=== PATIENT | male | born 1950 | race Caucasian/White ===

== ENCOUNTER 2017-08-03 04:29 | Day surgery (SDC) | payer OTHER ==
[2017-08-03 04:41] VITALS: BMI 25.3
--- NOTE | 2017-08-03 04:47 | PDOC ---
History of Present Illness - General Chief Complaint: Dysphagia Stated Complaint: DIFFICULTY SWALLOWING Time Seen by Provider: 08/03/17 04:33 - History of Present Illness Initial Comments: 08/03/17 04:49 This 66-year-old man with a history of Schatzki ring, hiatal hernia, GERD, BPH and remote history of squamous cell carcinoma of the tongue, presents with lower anterior chest pain secondary to food impaction. Schatzki ring was diagnosed approximately 3 years ago after Barium swallow/endoscopy . Patient has food impaction several times a year but all previous episodes have resolved spontaneously. recently, it has taken longer for boluses to pass thru esophagus completely. He has never needed endoscopic retrieval of food bolus. Last night, at approximately 8 PM patient ate brown rice/egg jennie young(patient does not eat meat). He knew immediately when one portion of food was not passing through the esophagus. For the first few hours, he was unable to swallow his saliva. Eventually, he was able to swallow his secretions. Through the night,patient slept in a chair and discomfort traveled lower but continued, now being in the lower sternal region. He also has had, as usual, frequent painful burping. He is still able to swallow his saliva but states he came in because the pain is so severe and prolonged Patient denies smoking/ethanol/other recreational drugs Medications as noted below Past History - Past Medical History Allergies/Adverse Reactions: Allergies Allergy/AdvReac Type Severity Reaction Status Date / Time nadira Allergy Mild Rash Unverified 01/31/15 21:39 Home Medications: Ambulatory Orders Levothyroxine [Synthroid -] 50 mcg PO DAILY 08/03/17 Cancer: Yes (SQUAMO. CELL CA TONGUE) - Suicide/Smoking/Psychosocial Hx Smoking Status: No Smoking History: Unknown if ever smoked Number of Cigarettes Smoked Daily: 0 Review of Systems - Review of Systems Able to Perform ROS?: Yes Comments:: 12 point review of systems is negative except for what is noted in the history of present illness *Physical Exam - Physical Exam Comments: GENERAL: Adult male, alert and oriented 3, in moderate distress secondary to lower chest pain/painful burping HEAD: Normal with no signs of trauma. EYES: PERRLA, EOMI, sclera anicteric, conjunctiva clear. ENT: Ears normal, nares patent, oropharynx clear without exudates. Dry mucous membranes. NECK: Normal range of motion, supple without lymphadenopathy, JVD, or masses. LUNGS: Breath sounds equal, clear to auscultation bilaterally. No wheezes, and no crackles. HEART:Regular rate and rhythm, normal S1 and S2 without murmur, rub or gallop. ABDOMEN:.normal bowel sounds No guarding,tenderness or rebound.No masses No distention. EXTREMITIES: Normal range of motion, no edema. No clubbing or cyanosis. No erythema, or tenderness. NEUROLOGICAL: Cranial nerves II through XII grossly intact. Normal speech. No focal neurological deficits. MUSCULOSKELETAL: Back non-tender to palpation, no CVA tenderness SKIN: Warm, Dry, normal turgor, no rashes or lesions noted. ED Treatment Course - LABORATORY CBC & Chemistry Diagram: 08/03/17 05:01 08/03/17 05:01 Medical Decision Making - Medical Decision Making 66-year-old man with known Schatzki ring and occasional food impaction presents with 8 hour history of anterior chest pain secondary to food bolus which appears to be progressing but not yet in stomach. Exam reveals normal chest and abdominal exam. CBC/chemistry profile/INR drawn for preop evaluation Glucagon 1 mg IV administered to attempt smooth muscle relaxation for passage of bolus. 08/03/17 06:21 Laboratory evaluation essentially normal except for mild prerenal azotemia (BUN 22/creatinine 0.9). Portable chest x-ray reveals no active disease; hiatal hernia seen. Patient had no relief after glucagon [address] Madsen notified: He will speak to OR and arrange for endoscopy. Pt given 500ml NS bolus 08/03/17 07:07 Case signed out to Dr King at end of shift. 08/03/17 07:08 *DC/Admit/Observation/Transfer Diagnosis at time of Disposition: Esophageal obstruction due to food impaction - Discharge Dispostion Disposition: HOME Condition at time of disposition: Good - Referrals - Patient Instructions - Post Discharge Activity
[2017-08-03] MEDS ORDERED: GLUCAGON 1 MG KIT IVPUSH ONE (04:48)
[2017-08-03] MEDS ORDERED: GLUCAGON 1 MG KIT ONE (04:51)
[2017-08-03 06:04] LABS: INR 0.99 (0.82-1.09); PROTHROMBIN TIME (PATIENT) 11.1 SEC (9.7-13.0)
[2017-08-03 06:08] LABS: RBC 4.96 M/mm3 (4.00-5.60); WHITE BLOOD COUNT 4.8 K/mm3 (4.0-10.0)
[2017-08-03 06:09] LABS: HEMATOCRIT 44.4 % (35.4-49); MCH 30.2 pg (25.7-33.7); MEAN CELL VOLUME 89.5 fl (80-96)
[2017-08-03 06:10] LABS: BASO % 0.7 % (0-2.0); EOS % 5.3 % (0-4.5); LYMPH % 33.5 % (8-40); MCHC 33.8 g/dl (32.0-35.9); MONO % 9.5 % (3.8-10.2); PLATELET COUNT 171 K/MM3 (134-434); RDW 14.2 % (11.9-15.9)
[2017-08-03 06:14] LABS: ALBUMIN 4.1 g/dl (3.4-5.0); ALK PHOS 85 U/L (45-117); ANION GAP 7 (8-16); BILIRUBIN,TOTAL 0.5 mg/dL (0.2-1.0); BLOOD UREA NITROGEN 22 mg/dL (7-18); CALCIUM 9.2 mg/dL (8.5-10.1); CHLORIDE 102 mmol/L (98-107); CO2 31 mmol/L (21-32); CREATININE 0.9 mg/dL (0.7-1.3); GLUCOSE,RANDOM 92 mg/dL (74-106); POTASSIUM 4.3 mmol/L (3.5-5.1); SGOT/AST 18 U/L (15-37); SGPT/ALT 24 U/L (12-78); SODIUM 140 mmol/L (136-145); TOT PROT 6.9 g/dl (6.4-8.2)
[2017-08-03] MEDS ORDERED: SODIUM CHLORIDE 500 ML IV STA (07:00)
--- NOTE | 2017-08-03 10:29 | PDOC ---
*Physical Exam - Vital Signs Last Vital Signs Temp Pulse Resp BP Pulse Ox 98 F 51 L 20 134/81 99 08/03/17 08:35 08/03/17 08:35 08/03/17 08:35 08/03/17 08:35 08/03/17 08:35 ED Treatment Course - LABORATORY CBC & Chemistry Diagram: 08/03/17 05:01 08/03/17 05:01 - ADDITIONAL ORDERS Additional order review: Laboratory Results 08/03/17 08/03/17 05:01 05:00 PT with INR 11.10 INR 0.99 Sodium 140 Potassium 4.3 Chloride 102 Carbon Dioxide 31 Anion Gap 7 L BUN 22 H Creatinine 0.9 Creat Clearance w eGFR > 60 Random Glucose 92 Calcium 9.2 Total Bilirubin 0.5 AST 18 ALT 24 Alkaline Phosphatase 85 Total Protein 6.9 Albumin 4.1 08/03/17 05:01 RBC 4.96 MCV 89.5 MCHC 33.8 RDW 14.2 Neutrophils % 51.0 Lymphocytes % 33.5 Monocytes % 9.5 Eosinophils % 5.3 H Basophils % 0.7 - Medications Given in the ED: ED Medications Discontinued Medications Generic Name Dose Route Start Last Admin Trade Name Freq PRN Reason Stop Dose Admin Glucagon 1 mg 08/03/17 04:48 08/03/17 05:01 Glucagon - IVPUSH 08/03/17 04:49 1 mg ONCE ONE Administration Sodium Chloride 500 mls @ 500 mls/hr 08/03/17 07:00 08/03/17 07:06 Normal Saline - IV 08/03/17 07:59 500 mls/hr ASDIR STA Administration Medical Decision Making - Medical Decision Making 08/03/17 10:30 Pt to be taken to the OR for further management *DC/Admit/Observation/Transfer Diagnosis at time of Disposition: Esophageal obstruction due to food impaction - Discharge Dispostion Condition at time of disposition: Stable Decision to Admit order: No - Referrals Referrals: Cody Gary MD [Primary Care Provider] - - Patient Instructions - Post Discharge Activity
[2017-08-03] MEDS ORDERED: SUCCINYLCHOLINE CHLORIDE 200 MG/10 ML VIAL ONE (10:40)
[2017-08-03] MEDS ORDERED: PROPOFOL 20 ML ONE ×2 (10:40→12:34)
[2017-08-03] MEDS ORDERED: MIDAZOLAM HCL 2 MG/2 ML SINGLE DOSE VIAL ONE ×3 (10:40→11:08)
[2017-08-03] MEDS ORDERED: LIDOCAINE HCL/PF 2% SDV 5ML VIAL ONE (10:42)
[2017-08-03] MEDS ORDERED: ONDANSETRON 4 MG/2 ML VIAL IVPUSH PRN (12:57)
[2017-08-03] MEDS ORDERED: LACTATED RINGERS SOLUTION 1,000 ML IV SCH (13:00)
--- NOTE | 2017-08-03 14:16 | OP ---
DATE OF OPERATION: 08/03/2017 SURGEON: Yan Madsen MD PROCEDURE: Upper endoscopy with foreign body removal from esophagus. DESCRIPTION OF PROCEDURE: Procedure sedated in the operating room by Dr. Quincy Metzger. The Olympus upper endoscope was passed under direct visualization down the esophagus. In the mid and distal esophagus, there appeared to be food impaction made up primarily of rice and some vegetable material. The scope was able to be pushed through this area to the distal esophagus and easily advanced through the GE junction into the stomach. The scope was then advanced into the small bowel. The 2nd portion of the duodenum appeared normal as did the duodenal bulb. The stomach was insufflated with air and appeared normal throughout. The fundus had some residual food that had been pushed down when the scope was advanced. The scope was then withdrawn back into the esophagus. There was some residual food in the distal esophagus primarily made up of soft, sticky material such as rice and possibly egg (patient had previously eaten Telugu food). There were no solid pieces noted, and the scope was able to be passed several times advancing some of the food material into the gastric fundus. There was an open lumen in the esophagus, so, when the procedure was completed, without obstruction. The scope was withdrawn from the patient. IMPRESSION: Mid to distal esophageal food impaction/obstruction due to a combination of rice and egg (Telugu food). There was possible narrowing and slight inflammation at the gastroesophageal junction above which the food was not passing. Food impaction was able to be passed in large part into the stomach. Patient tolerated the procedure well and is being recovered in PACU. YAN MADSEN M.D. EVER/[id number]
[2017-08-03 14:43] VITALS: BP 131/84; PULSE 51
[2017-08-03 14:44] VITALS: TEMP 98
== END 2017-08-03 14:52 | disposition home or self-care (01) ==
LOC: FER 04:29 → SUPCPDRO 04:29 → FASU-ENDO 10:30
PROVIDERS: ATTEND Internal Medicine Gastroenterology
PROC: 0DC58ZZ Extirpation of Matter from Esophagus, Via Natural or Artificial Opening Endoscopic (ICD-10-PCS; principal; 2017-08-03 12:32)
DX: T18.128A Food in esophagus causing other injury, initial encounter (principal); X58.XXXA Exposure to other specified factors, initial encounter; Y93.89 Activity, other specified; Y92.89 Other specified places as the place of occurrence of the external cause
CPT/HCPCS: 36415; 71045-TC-FY; 80053; 85025; 85610; 94760; 99283-25

== ENCOUNTER 2017-12-31 11:14 | Day surgery (SDC) | payer OTHER ==
[2017-12-28 14:27] VITALS: BMI 25.8
[2017-12-31] MEDS ORDERED: PROPOFOL 20 ML ONE (12:30)
[2017-12-31 13:20] VITALS: TEMP 98.2
[2017-12-31 13:39] VITALS: BP 118/60; PULSE 46
== END 2017-12-31 13:41 | disposition home or self-care (01) ==
LOC: FASU-ENDO 11:14
PROVIDERS: ATTEND Internal Medicine Gastroenterology
PROC: 0D748DZ Dilation of Esophagogastric Junction with Intraluminal Device, Via Natural or Artificial Opening Endoscopic (ICD-10-PCS; principal; 2017-12-31 12:44)
DX: K31.89 Other diseases of stomach and duodenum (principal); R13.10 Dysphagia, unspecified

== ENCOUNTER 2022-12-04 08:58 | Day surgery (SDC) | payer OTHER ==
[2022-11-30 11:53] VITALS: BMI 26.6
[2022-12-04] MEDS ORDERED: PROPOFOL 120 ML ONE (10:01)
[2022-12-04 10:46] VITALS: PULSE 45; RESP 16; TEMP 97.8
[2022-12-04 10:54] VITALS: BP 104/67
== END 2022-12-04 11:08 | disposition home or self-care (01) ==
LOC: FASU-ENDO 08:58
PROVIDERS: ATTEND Internal Medicine Gastroenterology
PROC: 0DJD8ZZ Inspection of Lower Intestinal Tract, Via Natural or Artificial Opening Endoscopic (ICD-10-PCS; principal; 2022-12-04 10:16)
DX: Z12.11 Encounter for screening for malignant neoplasm of colon (principal); K57.30 Diverticulosis of large intestine without perforation or abscess without bleeding

== ENCOUNTER 2023-04-25 07:45 | Day surgery (SDC) | payer OTHER ==
[2023-04-20 09:27] VITALS: BMI 26.6
[2023-04-25] MEDS: TROPICAMIDE 1% OPHTH SOLN 15 ML BOTTLE ONE (08:10)
[2023-04-25] MEDS: CIPROFLOXACIN 0.3% EYE DROPS 5 ML BOTTLE ONE (08:10)
[2023-04-25] MEDS: PHENYLEPHRINE 2.5% OPTHALMIC DROP 2ML BOTTLE ONE (08:10)
[2023-04-25] MEDS: CYCLOPENTOLATE 2% OPHTH SOLN 2 ML BOTTLE ONE (08:10)
[2023-04-25] MEDS ORDERED: NEO/POLYMYX B SULF/DEXAMETH OPHTHALMIC 5ML BOTTLE ONE (09:12)
[2023-04-25] MEDS ORDERED: EPINEPHrine/PF 1 MG/1 ML (1:1,000) AMPULE ONE (09:12)
[2023-04-25] MEDS ORDERED: BSS (NA/CA/MG/K) BALANCED SALT SOLUTION OPHTH SOLN 15 ML BOTTLE ONE (09:12)
[2023-04-25] MEDS ORDERED: CARBACHOL 0.01% INTRA-OCULAR 1.5 ML VIAL ONE (09:12)
[2023-04-25] MEDS ORDERED: LIDOCAINE 1% P/F 10 MG/ML VIAL ONE (09:12)
[2023-04-25] MEDS ORDERED: TETRACAINE 0.5% OPHTH SOLN 2 ML BOTTLE ONE (09:12)
[2023-04-25] MEDS ORDERED: MIDAZOLAM HCL 2 MG/2 ML SINGLE DOSE VIAL ONE (10:21)
[2023-04-25] MEDS ORDERED: PHENYLEPHRINE/KETOROLAC 4 ML VIAL IO ONE (10:22)
[2023-04-25 11:06] VITALS: RESP 16; TEMP 97.4
[2023-04-25 11:30] VITALS: BP 114/64; PULSE 47
== END 2023-04-25 11:53 | disposition home or self-care (01) ==
LOC: FASU 07:45
PROVIDERS: ATTEND Ophthalmology
PROC: 08RK3JZ Replacement of Left Lens with Synthetic Substitute, Percutaneous Approach (ICD-10-PCS; principal; 2023-04-25 10:29)
DX: H26.8 Other specified cataract (principal)
CPT/HCPCS: 66984; V2632; J1097

== ENCOUNTER 2023-08-22 06:32 | Day surgery (SDC) | payer OTHER ==
[2023-08-21 11:08] VITALS: BMI 26.6
[2023-08-22] MEDS: PHENYLEPHRINE 2.5% OPTHALMIC DROP 2ML BOTTLE ONE (07:00)
[2023-08-22] MEDS: CIPROFLOXACIN 0.3% EYE DROPS 5 ML BOTTLE ONE (07:00)
[2023-08-22] MEDS: TROPICAMIDE 1% OPHTH SOLN 15 ML BOTTLE ONE (07:00)
[2023-08-22] MEDS: CYCLOPENTOLATE 2% OPHTH SOLN 2 ML BOTTLE ONE (07:00)
[2023-08-22] MEDS ORDERED: EPINEPHrine/PF 1 MG/1 ML (1:1,000) AMPULE ONE (07:25)
[2023-08-22] MEDS ORDERED: TETRACAINE 0.5% OPHTH SOLN 2 ML BOTTLE ONE (07:26)
[2023-08-22] MEDS ORDERED: LIDOCAINE 1% P/F 10 MG/ML VIAL ONE (07:26)
[2023-08-22] MEDS ORDERED: BSS (NA/CA/MG/K) BALANCED SALT SOLUTION OPHTH SOLN 15 ML BOTTLE ONE (07:26)
[2023-08-22] MEDS ORDERED: CARBACHOL 0.01% INTRA-OCULAR 1.5 ML VIAL ONE (07:27)
[2023-08-22] MEDS ORDERED: NEO/POLYMYX B SULF/DEXAMETH OPHTHALMIC 5ML BOTTLE ONE (07:28)
[2023-08-22] MEDS ORDERED: MIDAZOLAM HCL 2 MG/2 ML SINGLE DOSE VIAL ONE (07:42)
[2023-08-22 08:46] VITALS: RESP 18; TEMP 97.1
[2023-08-22 09:34] VITALS: BP 106/68; PULSE 48
== END 2023-08-22 09:25 | disposition home or self-care (01) ==
LOC: FASU 06:32
PROVIDERS: ATTEND Ophthalmology
PROC: 08RJ3JZ Replacement of Right Lens with Synthetic Substitute, Percutaneous Approach (ICD-10-PCS; principal; 2023-08-22 08:17)
DX: H26.8 Other specified cataract (principal)
CPT/HCPCS: 66984; V2632